=== PATIENT | female | born 1945 | race Caucasian/White ===

== ENCOUNTER 2018-04-17 06:50 | Inpatient (IN) | payer MEDICARE, OTHER | END 2018-04-18 18:57 | disposition home or self-care (01) | LOC: ER 06:50 → ED HOLD 08:28 → PCU 3S 11:25 | PROC: 0DJ08ZZ Inspection of Upper Intestinal Tract, Via Natural or Artificial Opening Endoscopic (ICD-10-PCS; principal; ~2018-04-17) | DX: T39.395A Adverse effect of other nonsteroidal anti-inflammatory drugs [NSAID], initial encounter (principal); K26.4 Chronic or unspecified duodenal ulcer with hemorrhage; K29.70 Gastritis, unspecified, without bleeding; K44.9 Diaphragmatic hernia without obstruction or gangrene ==